=== PATIENT | male | born 2000 | race African-American/Black ===

== ENCOUNTER 2022-09-09 20:33 | Emergency (ER) | payer BC, SELFPAY ==
[2022-09-09 20:36] VITALS: BP 116/73; PULSE 59; RESP 16; TEMP 36.7; O2SAT 100
--- NOTE | 2022-09-09 20:36 | ECG_ITS ---
Measurements Intervals [place] Rate: 57 P: 29 AL: 169 QRS: 16 QRSD: 87 T: -1 QT: 404 QTc: 395 Interpretive Statements SINUS BRADYCARDIA VOLTAGE CRITERIA FOR LVH ST ELEVATION IN ANTEROLAT/HIGH LAT LEADS, PROBABLY EARLY REPOLARIZATION BORDERLINE ECG NO PREVIOUS ECG AVAILABLE FOR COMPARISON Electronically Signed On 09-09-2022 21:13:05 CDT by Ryan Vasquez D.O.
--- NOTE | 2022-09-09 20:53 | ED.SYNCOPE ---
HPI - Syncope General Chief Complaint: Syncope <JOSELINE Gray Last Filed: 09/09/22 22:55> Stated Complaint: syncope <JOSELINE Gray Last Filed: 09/09/22 22:55> Time Seen by Provider: 09/09/22 20:40 <Arlene Wayne PA-C - Last Filed: 09/09/22 22:55> History of Present Illness HPI narrative: 22-year-old male reports for evaluation after syncopal episode that occurred just prior to arrival while he was at work. Patient states he was outside having a smoke break, began to walk inside and experienced lightheadedness and tunnel vision. Patient states his boss began to approach him when he fell on his back and blacked out for a couple of seconds. States the syncopal episode was witnessed by his boss. Denies seizure-like activity, hitting his head, injuries obtained during the fall, oral injury, incontinence. Denies chest pain, shortness of breath, nausea or vomiting, diarrhea, fever, history of syncope or seizures. States he has not eaten today. <JOSELINE Gray Last Filed: 09/09/22 22:55> Related Data Allergies/Adverse Reactions: Allergies Allergy/AdvReac Type Severity Reaction Status Date / Time No Known Allergies Allergy Verified 09/09/22 20:41 <JOSELINE Gray Last Filed: 09/09/22 22:55> Review of Systems Review of Systems: CONSTITUTIONAL: Denies fever, chills EYES: Denies visual changes, redness, or discharge. ENT: Denies rhinorrhea, congestion, sore throat, or otalgia. CARDIOVASCULAR: Denies chest pain, palpitations, or edema. RESPIRATORY: Denies cough or dyspnea. GASTROINTESTINAL: Denies abdominal pain, nausea, vomiting, or diarrhea. GENITOURINARY: Denies dysuria or hematuria. SKIN: Denies rash or itching. MUSCULOSKELETAL: Denies back pain, joint pain, or myalgia. NEUROLOGIC: Denies headache, numbness, dizziness, or weakness. PSYCHIATRIC: Denies anxiety or depression. <JOSELINE Gray Last Filed: 09/09/22 22:55> Exam Narrative: GENERAL: Well-appearing, in no acute distress. Patient resting comfortably in exam bed. He is pleasant and conversational. HEAD: Normocephalic EYES: PERRLA, extraocular movements intact ENT: Nares clear. Mucous membranes moist. Oropharynx without tonsillar hypertrophy exudate or other lesions. NECK: Supple. CHEST: No respiratory distress. Clear to auscultation, no adventitious breath sounds. HEART: Regular rate and rhythm. No murmur heard. Normal peripheral pulses. ABDOMEN: Soft, nontender, normal active bowel sounds. EXTREMITIES: Normal range of motion. No edema. SKIN: Warm, dry, no rash. NEURO: No focal deficits. Alert and oriented x3. Cranial nerves II through XII intact. Strength 5 out of 5 in bilateral upper and lower extremities. Negative pronator drift. Sensation intact throughout. PSYCH: Normal mood and affect. <Arlene Wayne PA-C - Last Filed: 09/09/22 22:55> Course RELIGION INSTRUCTOR/PA Physician Supervision This is a was performed by both a physician and an APC. I performed all aspects of the MDM as documented w/ the following additions: 22-year-old presenting with syncope. Patient is low risk. Likely vasovagal. Discharged.All questions answered. Patient in agreement w/ disposition. <Ralf Stallings MD - Last Filed: 09/15/22 03:16> Vital Signs Vital signs: Vital Signs Temperature 98.1 F 09/09/22 20:36 Pulse Rate 59 L 09/09/22 20:36 Respiratory Rate 16 09/09/22 20:36 Blood Pressure 116/73 09/09/22 20:36 Pulse Oximetry 100 09/09/22 20:36 Oxygen Delivery Room Air 09/09/22 20:36 Temperature 98.1 F 09/09/22 20:36 Pulse Rate 71 09/09/22 22:28 Respiratory Rate 16 09/09/22 20:36 Blood Pressure 109/59 L 09/09/22 22:28 Pulse Oximetry 100 09/09/22 20:58 Oxygen Delivery Room Air 09/09/22 20:58 <Arlene Wayne PA-C - Last Filed: 09/09/22 22:55> Vital Signs Temperature 98.1 F 09/09/22 20:36 Pulse Rate 59 L
[2022-09-09 20:55] LABS: Basophils Percent Auto 0.6 % (0.2-1.2); Eosinophils Absolute Auto 0.1 K/mm3 (0-0.3); Eosinophils Percent Auto 0.7 % (0-4.4); Hematocrit 44.8 % (42.0-52.0); Hemoglobin 14.3 g/dL (14.0-18.0); Immature Granulocyte Absolute 0.01 K/mm3 (0.00-0.031); Immature Granulocyte Percent A 0.1 % (0-0.5); Lymphocytes Absolute Auto 3.22 K/mm3 (0.9-3.2); Lymphocytes Percent Auto 47.3 % (18.3-44.2); Mean Corpuscular HGB Conc 31.9 g/dl (32-36); Mean Corpuscular Hemoglobin 27.8 pg (26-34); Mean Corpuscular Volume 87.2 fl (80-100); Mean Platelet Volume 11.1 fl (7.4-10.4); Monocytes Absolute Auto 0.4 K/mm3 (0.1-0.6); Monocytes Percent Auto 5.7 % (2.6-8.5); Neutrophils Absolute Auto 3.1 K/mm3 (1.3-6.7); Neutrophils Percent Auto 45.6 % (45.5-73.1); Platelet Count Result 185 k/mm3 (150-375); Red Blood Count 5.14 M/mm3 (4.6-6.20); White Blood Count 6.8 K/mm3 (4.5-10.0)
[2022-09-09 20:58] VITALS: O2SAT 100
[2022-09-09] MEDS: SODIUM CHLORIDE 0.9% IV 1,000 ML 999 ML IV CONT (21:05)
[2022-09-09 21:06] LABS: Alanine Aminotransferase 56 U/L (6-50); Albumin Level 4.5 g/dL (3.5-5.1); Alkaline Phosphatase 45 U/L (38-126); Anion Gap 9 mmol/L (8-16); Aspartate Amino Transferase 46 U/L (17-59); Bilirubin,Total 1.2 mg/dL (0.2-1.3); Blood Urea Nitrogen 15 mg/dL (9-20); Calcium 8.7 mg/dL (8.4-10.2); Carbon Dioxide 25 mmol/L (22-30); Chloride 102 mmol/L (98-107); Estimated CRCL calculation 114 ml/min; Estimated Glomerular Filt Rate > 60; Glucose 116 mg/dL (65-110); Potassium 3.7 mmol/L (3.4-5.0); Sodium 136 mmol/L (137-145)
[2022-09-09 22:25] VITALS: BP 100/61; PULSE 64
[2022-09-09 22:27] VITALS: BP 104/67; PULSE 71
[2022-09-09 22:28] VITALS: BP 109/59; PULSE 71
== END 2022-09-09 22:52 | disposition home or self-care (01) ==
PROVIDERS: Emergency Medicine; Emergency Provider Physician Assistant; PCP Family Medicine
DX: R55 Syncope and collapse (principal)
CPT/HCPCS: 36415; 80053; 85025; 93005; 96360; 99284; J7030